=== PATIENT | female | born 1965 | race Caucasian/White ===

== ENCOUNTER 2018-02-25 18:06 | Inpatient (IN) | payer OTHER ==
[~2018-02-25] VITALS: Ht 162.6 cm; Wt 132.4 kg
--- NOTE | ~2018-02-25 | CON ---
[address] [address] CONSULTATION Name: ERYN MONROY Rayshawn Room: [address] IN .R.#: [id number] Admission: 02/25/18 Attend Phys: Katherine Parra MD Discharge: Date of : 67 Report #: [id number] THIS REPORT FOR: //name// CC: [facility] physician/PCP Katherine Parra HISTORY OF PRESENT ILLNESS: The patient is a 52-year-old female who on Monday night, had approximately a 2-hour episode of paresthesias of the left hand and face. She came to the Emergency Room and was admitted for further evaluation. The patient states she has never had a spell like that before and has not had any since. She had not been taking aspirin. She stopped smoking 1 year ago. The patient has had an MRI of the head, MRA of the head and neck. CT angiogram of the head and neck, which have been unremarkable. The patient has normal routine laboratory work including hematology, chemistry and lipid profile. Her triglyceride is 109, cholesterol 166, LDL cholesterol 98 and HDL cholesterol 47. Currently, the patient is sitting up in bed, playing Go. PAST MEDICAL HISTORY: Negative. PAST SURGICAL HISTORY: Cholecystectomy, left knee surgery, face grafting. MEDICATIONS AT HOME: None. ALLERGIES: None. VITAL SIGNS: Temperature is 36.7, pulse rate 73, respiratory rate 18, blood pressure 121/74, bedside pulse oximetry 96% on room air. LABORATORY WORK: White blood cell count 10.4, hemoglobin 14.6, hematocrit 42.8, MCV 90.2, platelet count 288,000. INR 1. Chemistry: Sodium 139, potassium 3.8, chloride 103, carbon dioxide 26, BUN 17, creatinine 0.8, glucose 143, calcium 5.2, total bilirubin 0.2, AST 28, ALT 46, alkaline phosphatase 101, creatinine kinase 111, albumin 3.3, total protein 7.3. Lipid profile as noted in the history. NEUROLOGIC EXAMINATION: Cranial nerves 2-12 are grossly intact. Motor exam demonstrates symmetrical strength in all 4 extremities. There was no evidence of dysmetria. Gait was not tested. IMPRESSION: This patient has had a transient ischemic attack. To complete the workup, she needs an echocardiogram, which I have ordered. Once the results of the echocardiogram are available, at least the echocardiogram is done, she can be discharged on aspirin 81 mg daily. If she goes home before the echo results are available, I will watch for those results and [place] [address] CONSULTATION Name: ERYN MONROY Room: [address] IN [facility]#: [id number] Admission: 02/25/18 Attend Phys: Katherine Parra MD Discharge: Date of : 67 Report #: [id number] I thank you for your kind referral of the patient. By: 1110 [id number] Mackenzie DO /pan
[2018-02-25 18:12] VITALS: BP 101/83
[2018-02-25 18:44] LABS: ABSOLUTE BASOPHILS 0.1 thou/uL (0.0-0.2); ABSOLUTE EOSINOPHILS 0.3 thou/uL (0.0-0.7); ABSOLUTE LYMPHOCYTES 1.7 thou/uL (0.8-5.3); ABSOLUTE MONOCYTES 0.9 thou/uL (0.0-1.2); ABSOLUTE NEUTROPHILS 7.4 thou/uL (1.6-8.1); BASOPHILS 0.7 %; EOSINOPHILS 2.8 %; HEMATOCRIT 42.8 % (37.0-47.0); HEMOGLOBIN 14.6 gm/dL (12.0-15.0); LYMPHOCYTES 16.7 %; MCH 30.9 pg (26.0-34.0); MCHC 34.2 g/dL (28.0-37.0); MCV 90.2 fL (80.0-100.0); MONOCYTES 8.3 %; MPV 7.1 fl. (7.2-11.1); NUCLEATED RBCS 0 /100WBC; PLATELET COUNT* 288 thou/uL (150-400); POLYS 71.5 %; RBC 4.75 mil/uL (4.20-5.00); RDW-CV 13.3 % (10.5-14.5); WBC 10.4 thou/uL (4.0-11.0)
[2018-02-25 18:49] LABS: POC CA IONIZED 4.3 mg/dL (4.5-5.3); POC CREATININE 0.8 mg/dL (0.6-1.3); POC HEMOGLOBIN 14.6 g/dL (12.0-17.0); POC POTASSIUM 3.8 mmol/L (3.5-4.9)
[2018-02-25 18:51] LABS: PROTIME 10.1 Seconds (9.20-11.50)
[2018-02-25 18:52] LABS: ANION GAP 7 mmol/L (7-16); BUN 17 mg/dL (7-18); CALCIUM 8.5 mg/dL (8.5-10.1); CHLORIDE 103 mmol/L (98-107); CO2 29 mmol/L (21-32); CREATININE 0.9 mg/dL (0.6-1.3); GLUCOSE 143 mg/dL (70-99); POTASSIUM 3.7 mmol/L (3.5-5.1); SODIUM 139 mmol/L (136-145)
[2018-02-25 18:59] LABS: ALBUMIN 3.3 g/dL (3.4-5.0); ALKALINE PHOSPHATASE 101 U/L (46-116); SGOT 28 U/L (15-37); SGPT 46 U/L (30-65); TOTAL BILIRUBIN 0.2 mg/dL (<0.1-1.0); TOTAL PROTEIN 7.3 g/dL (6.4-8.2); TROPONIN-I LEVEL <0.06 ng/mL (<0.06)
[2018-02-25 20:20] VITALS: BP 123/69
[2018-02-25 21:00] VITALS: BP 141/80
[2018-02-26 00:20] VITALS: BP 115/58
[2018-02-26 04:01] VITALS: BP 138/65
--- NOTE | 2018-02-26 05:06 | NUR ---
PT RECIEVED FROM ED APPROX 2044. SAT MAINTAINED IN RA. CALL LIGHT WITHIN REACH AND BED IN LOW POSITION. RUNNING SR ON THE MONITOR. DENIES SOB AND PAIN. HOURLY ROUNDING DONE FOR PT SAFETY.
--- NOTE | 2018-02-26 06:45 | NUR ---
PT OUT OF ROOM, MET WITH /ARMANDO. 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 USES NO EQUIPMENT. DENIES NEEDS AT THIS TIME. WILL FOLLOW
[2018-02-26 12:00] VITALS: BP 130/87
--- NOTE | 2018-02-26 16:26 | EKG ---
[place] [address] ELECTROCARDIOGRAM REPORT Name: ELIANAERYN T Room: [address] IN .R.#: [id number] Admission: 02/25/18 Attend Phys: Katherine Parra MD Discharge: Date of : 67 Report #: [id number] THIS REPORT FOR: //name// [facility] ED Test Date: 2018-02-25 Test Time: 18:50:08 Pat Name: ERYN MONROY Department: Room: 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
[2018-02-26 17:03] VITALS: BP 138/87
[2018-02-26 20:00] VITALS: BP 122/79
[2018-02-27] VITALS: BP 120/91
[2018-02-27 04:00] VITALS: BP 116/59
--- NOTE | 2018-02-27 04:56 | NUR ---
PT CARE ASSUMED AT 1930. SAT MAINTAINED IN RA. ALERT AND ORIENTED X4. CALL LIGHT WITHIN REACH AND BED IN LOW POSITION. DENIES PAIN AND SOB. SLEPT FOR MOST OF THE NIGHT. RUNNING SR ON THE MONITOR. HOURLY ROUNDING DONE FOR PT SAFETY.
[2018-02-27 05:41] LABS: CHOLESTEROL 166 mg/dL (<200); HDL CHOLESTEROL 47 mg/dL (>40); LDL CHOLESTEROL 98 mg/dL (<100); TC:HDL 3.5 Ratio (Not establshd); TRIGLYCERIDE 109 mg/dL (<150); VLDL 22 mg/dL (<40)
[2018-02-27 05:42] LABS: SERUM ASSESSMENT Clear
[2018-02-27 08:00] VITALS: BP 121/74
--- NOTE | 2018-02-27 08:00 | NUR ---
ASSUMED CARE OF PT ASSESSED AND DOCUMENTED. PT IS ON CARDIAC MONITER TRACING SR HR 82. PT IS A&O WITH NO C/O PAIN. VSS WNL. PT IS AFEBRILE. PT HAS A PRODUCTIVE COUGH. SPUTUM NOT OBSERVED. SHE IS ON ROOM AIR SAT 96%. PT SCORED 0 ON NIH SCALE. BED IS IN LOW POSITION CALL LIGHT IS IN REACH. IS AT BEDSIDE. WM.
--- NOTE | 2018-02-27 08:29 | NUR ---
RECEIVED CONSULT FOR POSSIBLE REHAB ADMISSION. CONSULT HAS BEEN ACKNOWLEDGED BY PYROTECHNIC ASSEMBLER AND DR. JAIME. PATIENT ADMITTED WITH C/O LEFT SIDED FACIAL TINGLING AND NUMBNESS WELL LEFT ARM. IMAGING NEGATIVE FOR STROKE. PATIENTS SYMPTOMS HAVE RESOLVED AND PATIENT IS BACK TO BASELINE. SHE WAS INDEPENDENT WITH PT/OT EVALUATIONS AND DISCHARGED FROM THERAPIES. NEUROLOGY EVALUATION IS ON PROGRESS. PATIENT DOES NOT QUALIFY FOR ACUTE REHAB AT THIS TIME. THANK YOU FOR THIS REFERRAL.
[2018-02-27 12:01] VITALS: BP 134/62
[2018-02-27] MEDS ORDERED: ASPIR 8181 MG PO (13:10)
--- NOTE | 2018-02-27 17:11 | 2DMMODE ---
[place] [address] 2 D/M-MODE ECHOCARDIOGRAM Name: ERYN MONROY Room: [address] IN [facility]#: [id number] Admission: 02/25/18 Attend Phys: Katherine Parra, Discharge: Date of : 67 Date of Service: 02/27/18 1711 Report #: [id number] THIS REPORT FOR: //name// APPROVED REPORT Study performed: 02/27/2018 15:10:22 EXAM: Comprehensive 2D, Doppler, and color-flow Echocardiogram Patient Location: In-Patient Room #: [facility] Status: routine BSA: 2.29 HR: 74 bpm BP: 134/62 mmHg Rhythm: NSR Other Information Study Quality: Good Indications CVA/TIA Echo Enhancing Agent Indication: Rule out Shunt Agent(s) / Amount(s) Used: Agitated Saline 10 cc 2D Dimensions IVSd: 12.65 (7-11mm) LVOT Diam: 19.60 (18-24mm) LVDd: 45.74 mm PWd: 10.49 (7-11mm) Ascending Ao: 32.06 (22-36mm) LVDs: 24.94 (25-40mm) Aortic Root: 28.65 mm Volumes Left Atrial Volume (Systole) LA ESV Index: 20.50 mL/m2 Aortic Valve AoV Peak Dany.: 1.40 m/s AO Peak Gr.: 7.83 mmHg LVOT Max P.21 mmHg AO Mean Gr.: 4.01 mmHg LVOT Mean P.28 mmHg LVOT Max V: 1.14 m/s AO V2 VTI: 27.67 cm LVOT Mean V: 0.68 m/s EARLE (VTI): 2.50 cm2 LVOT V1 VTI: 22.93 [place] [address] 2 D/M-MODE ECHOCARDIOGRAM Name: ERYN MONROY Room: [address] IN ..#: [id number] Admission: 02/25/18 Attend Phys: Katherine Parra, Discharge: Date of : 67 Date of Service: 02/27/18 1711 Report #: [id number] Mitral Valve E/A Ratio: 1.29 MV Decel. Time: 159.54 ms MV E Max Dany.: 1.05 m/s MV PHT: 46.27 ms MVA (PHT): 4.76 cm2 TDI E/Lateral E': 7.50 E/Medial E': 8.08 Medial E' Dany.: 0.13 m/s Lateral E' Dany.: 0.14 m/s Pulmonary Valve PV Peak Dany.: 0.90 m/s PV Peak Gr.: 3.23 mmHg Tricuspid Valve RAP Estimate: 5.00 mmHg TR Peak Gr.: 23.90 mmHg RVSP: 28.00 mmHg PA Pressure: 28.00 mmHg Left Ventricle The left ventricle is normal size. There is normal LV segmental wall motion. There is normal left ventricular wall thickness. Left ventricular systolic function is normal. LVEF is 55-60%. The left ventricular diastolic function is normal. Right Ventricle The right ventricle is normal size. The right ventricular systolic function is normal. Atria The left atrium size is normal. Interatrial septum is intact without evidence of ASD or PFO. The right atrium size is normal. Aortic Valve The aortic valve is normal in structure. No aortic regurgitation is present. There is no aortic valvular stenosis. Mitral Valve The mitral valve is normal in structure. There is no mitral valve regurgitation noted. No evidence of mitral valve stenosis. Tricuspid Valve The tricuspid valve is normal in structure. Trace tricuspid regurgitation. [place] [address] 2 D/M-MODE ECHOCARDIOGRAM Name: ERYN MONROY Room: [address] IN ..#: [id number] Admission: 02/25/18 Attend Phys: Katherine Parra, Discharge: Date of : 67 Date of Service: 02/27/18 1711 Report #: [id number] Pulmonic Valve The pulmonary valve is normal in structure. There is no pulmonic valvular regurgitation. Great Vessels The aortic root is normal in size. IVC is normal in size and collapses >50% with inspiration. Pericardium There is no pericardial effusion. <Conclusion> The left ventricle is normal size. There is normal left ventricular wall thickness. Left ventricular systolic function is normal. LVEF is 55-60%. The left ventricular diastolic function is normal. Interatrial septum is intact without evidence of ASD or PFO. IVC is normal in size and collapses >50% with inspiration. <ELECTRONICALLY SIGNED> By: Jordi Alcantar MD, FACC 02/27/181710 10 10 Jordi Alcantar MD, FACC /INF
[2018-02-27 17:47] VITALS: BP 134/62
[2018-02-27 18:08] LABS: GLYCOHEMOGLOBIN (HGB A1C) 5.6 % (4.8-5.6)
[2018-02-27 18:38] VITALS: BP 134/62
--- NOTE | 2018-02-27 18:48 | NUR ---
PT D/C'D TO HOME. ALL CONSULTS OK WITH D/C. IV AND CARDIAC MONITER D/C'D. EDUCATION GIVEN RE FOLLOW-UPS, DRS ORDERS AND MEDICATION. ALL BELONGINGS PACKED UP AND LEFT WITH PT ACCOMPANIED BY .
== END 2018-02-27 18:40 | disposition home or self-care (01) | DRG 69 ==
LOC: M.ERS 18:06 → M.2W 19:04 → M.TBA-ER 19:04 → M.2W 20:45
PROVIDERS: Emergency Medicine Emergency Medical Services; ADMIT Internal Medicine
DX: G45.9 Transient cerebral ischemic attack, unspecified (principal); Z68.43 Body mass index [BMI] 50.0-59.9, adult; H26.9 Unspecified cataract; E66.9 Obesity, unspecified; E83.51 Hypocalcemia; Z87.891 Personal history of nicotine dependence; Z90.49 Acquired absence of other specified parts of digestive tract